=== PATIENT | male | born 1985 | race Caucasian/White ===

== ENCOUNTER 2020-12-13 14:49 | Emergency (ER) | payer OTHER ==
[~2020-12-13] VITALS: Ht 177.8 cm; Wt 77.3 kg
[2020-12-13 14:50] VITALS: BP 137/92
== END 2020-12-13 16:31 | disposition left against medical advice (07) ==
LOC: M ED 14:49
DX: Z53.21 Procedure and treatment not carried out due to patient leaving prior to being seen by health care provider (principal)